=== PATIENT | male | born 1985 | race Caucasian/White ===

== ENCOUNTER 2020-04-14 13:46 | Emergency (ER) | payer SELFPAY ==
[2020-04-14] MEDS ORDERED: KETOROLAC TROMETHAMINE INJ/PF 30 MG/1 ML SDV IV ONE (14:45)
--- NOTE | 2020-04-14 14:48 | ER Document Report ---
ED Medical Screen (RME) - General Chief Complaint: Abdominal Pain Stated Complaint: LEFT UPPER ABDOMINAL PAIN Time Seen by Provider: 04/14/20 14:42 Information source: Patient - HPI Patient complains to provider of: ABDO PAIN Notes: 04/14/20 14:47 Patient with complaints of left lower quadrant abdominal pain. He states that the pain started suddenly about 3 hours ago after he was having a bowel movement. The pain has been severe and constant. No history of kidney stones. No vomiting, no fever. Patient reports he had a normal bowel movement. Exam: Patient crying, appears very uncomfortable, somewhat difficult to examine due to his distress. Abdominal tenderness to the left lower quadrant on limited triage abdominal exam. An initial examination was made on the patient as part of the triage process, and it was determined a more comprehensive evaluation was necessary. Initial labs were ordered and patient was transferred to another provider in the ED who assumed care and finished evaluation and plan. - Related Data Allergies/Adverse Reactions: No Known Allergies Allergy (Unverified 04/14/20 14:46) Past Medical History - Social History Chew tobacco use (# tins/day): No Frequency of alcohol use: None Drug Abuse: Marijuana
[2020-04-14] MEDS ORDERED: KETOROLAC TROMETHAMINE 60 MG/2 ML SDV IM ONE (15:09)
--- NOTE | 2020-04-14 15:28 | RADIOLOGY REPORT (SQ) ---
EXAM DESCRIPTION: CT ABD/PELVIS NO ORAL OR IV IMAGES COMPLETED DATE/TIME: 04/14/2020 3:18 pm REASON FOR STUDY: Severe left lower quadrant pain after BM COMPARISON: None. TECHNIQUE: CT scan of the abdomen and pelvis performed without intravenous or oral contrast. Images reviewed with lung, soft tissue, and bone windows. Reconstructed coronal and sagittal MPR images revi ewed. All images stored on PACS. All CT scanners at this facility use dose modulation, iterative reconstruction, and/or weight based d osing when appropriate to reduce radiation dose to as low as reasonably achievable (ALARA). [facility]: Dose Right [facility]: CareDose [facility]: Dose Right [facility]: Teradose 4D [facility]: Amp'd Mobile RADIATION DOSE: mGy. LIMITATIONS: None. FINDINGS: LOWER CHEST: No significant findings. No nodules or infiltrates. NON-CONTRASTED LIVER, SPLEEN, ADRENALS: Evaluation limited by lack of IV contrast. No identified sign ificant masses. PANCREAS: No masses. No peripancreatic inflammatory changes. GALLBLADDER: No identified stones by CT criteria. No inflammatory changes to suggest cholecystitis. RIGHT KIDNEY AND URETER: No suspicious masses. Assessment limited by lack of IV contrast. Small pun ctate nonobstructing right renal calculi. No hydronephrosis or hydroureter. LEFT KIDNEY AND URETER: No suspicious masses. Assessment limited by lack of IV contrast. Small nono bstructing left renal calculi. Mild prominence of the left renal pelvis no ureteral dilatation. AORTA AND RETROPERITONEUM: No aneurysm. No retroperitoneal masses or adenopathy. BOWEL AND PERITONEAL CAVITY: No obvious masses or inflammatory changes. No free fluid. APPENDIX: Normal. PELVIS, BLADDER, AND ABDOMINAL WALL:There is a calcification in close proximity to the left UVJ but t his clearly lies outside of the bladder. BONES: No significant findings. OTHER: No other significant finding. IMPRESSION: Mild prominence of left collecting system no obstructing stones are identified. There a re small punctate nonobstructing bilateral renal calculi. No other significant findings in the abdom en or pelvis. COMMENT: Quality ID # [id number]: Final reports with documentation of one or more dose reduction techniques (e.g., Automated exposure control, adjustment of the mA and/or kV according to patient size, use of iterative reconstruction technique) TECHNICAL DOCUMENTATION: JOB ID: [id number] [employer]- All Rights Reserved Reading location - IP/workstation name: [email or web address]
[2020-04-14 15:53] LABS: APPEARANCE,URINE SLIGHTLY-CLOUDY; BILIRUBIN,URINE NEGATIVE (NEGATIVE); COLOR,URINE YELLOW; GLUCOSE, URINE NEGATIVE (NEGATIVE); KETONES,URINE 20 mg/dL (NEGATIVE); LEUKOCYTE ESTERASE,URINE NEGATIVE (NEGATIVE); NITRITE,URINE NEGATIVE (NEGATIVE); PROTEIN,URINE 30 mg/dL (NEGATIVE)
[2020-04-14 15:55] LABS: ABSOLUTE BASOPHILS # (AUTO) 0.1 10^3/uL (0.0-0.2); ABSOLUTE EOSINOPHILS # (AUTO) 0.1 10^3/uL (0.0-0.6); ABSOLUTE LYMPHOCYTES (AUTO) 1.6 10^3/uL (0.5-4.7); ABSOLUTE MONOCYTES (AUTO) 1.3 10^3/uL (0.1-1.4); BASOPHILS % (AUTO) 0.4 % (0-2); EOSINOPHILS % (AUTO) 0.7 % (0-6); HEMATOCRIT 41.4 % (37.9-51.0); HEMOGLOBIN 14.7 g/dL (13.5-17.0); LYMPHOCYTES % (AUTO) 11.1 % (13-45); MEAN CORPUSCULAR HEMOGLOBIN 31.5 pg (27.0-33.4); MEAN CORPUSCULAR HGB CONC 35.4 g/dL (32.0-36.0); MEAN CORPUSCULAR VOLUME 89 fl (80-97); MONOCYTES % (AUTO) 9.1 % (3-13); PLATELET COUNT 357 10^3/uL (150-450); RED BLOOD COUNT 4.66 10^6/uL (4.35-5.55); RED CELL DISTRIBUTION WIDTH 13.4 % (11.5-14.0); SEGMENTED NEUTROPHILS % (AUTO) 78.7 % (42-78); TOTAL CELLS COUNTED % (AUTO) 100 %
[2020-04-14 16:20] LABS: ALKALINE PHOSPHATASE 65 U/L (38-126); ANION GAP 11 (5-19); ASPARTATE AMINO TRANSFERASE 30 U/L (17-59); BILIRUBIN,DIRECT 0.3 mg/dL (0.0-0.4); BILIRUBIN,TOTAL 0.6 mg/dL (0.2-1.3); BLOOD UREA NITROGEN 18 mg/dL (7-20); CALCIUM 10.1 mg/dL (8.4-10.2); CARBON DIOXIDE 26 mmol/L (22-30); CHLORIDE 101 mmol/L (98-107); GLUCOSE 118 mg/dL (75-110); TOTAL PROTEIN 8.3 g/dL (6.3-8.2)
[2020-04-14 16:50] LABS: ALBUMIN 4.9 g/dL (3.5-5.0)
[2020-04-14] MEDS ORDERED: ONDANSETRON 4 MG TAB.RAPDIS PO ONE (19:30)
[2020-04-14] MEDS ORDERED: OXYCODONE-ACETAMINOPHEN 5-325 MG TABLET PO ONE (19:30)
[2020-04-14] MEDS ORDERED: TAMSULOSIN HCL 0.4 MG CAP.SR.24H PO ONE (19:31)
[2020-04-14] MEDS ORDERED: HYDROCODONE/ACETAMINOPHEN 5-325 MG (6 TAB/ER DISP) PO PRN (19:37)
--- NOTE | 2020-04-14 19:39 | ER Document Report ---
ED General - General Chief Complaint: Abdominal Pain Stated Complaint: LEFT UPPER ABDOMINAL PAIN Time Seen by Provider: 04/14/20 14:42 - HPI Notes: 34-year-old male presents to the emergency department for evaluation of left-sided abdominal pain. He had a bowel movement today while at work. Shortly afterwards he had a sharp and stabbing left upper quadrant pain. It radiates around to his back. He has had some associated chills but no ajay fevers. No nausea or vomiting. He denies any gross hematuria or urinary frequency. He is never had pain like this in the past. His bowel movement was normal. He denies any coughing or shortness of breath. He did have some temporary relief with the Toradol here but he states that the pain is coming back. It is constant in nature but waxes and wanes in intensity. - Related Data Allergies/Adverse Reactions: No Known Allergies Allergy (Unverified 04/14/20 14:46) Past Medical History - General Information source: Patient - Social History Smoking Status: Current Every Day Smoker Chew tobacco use (# tins/day): No Frequency of alcohol use: None Drug Abuse: Marijuana Family History: Reviewed & Not Pertinent - Past Medical History Cardiac Medical History: Denies: Hx Coronary Artery Disease, Hx Hypertension Pulmonary Medical History: Denies: Hx Asthma, Hx COPD Neurological Medical History: Denies: Hx Cerebrovascular Accident, Hx Seizures Endocrine Medical History: Denies: Hx Diabetes Mellitus Type 1, Hx Diabetes Mellitus Type 2 Review of Systems - Review of Systems Constitutional: See HPI EENT: No symptoms reported Cardiovascular: No symptoms reported Respiratory: No symptoms reported Gastrointestinal: See HPI Genitourinary: See HPI Musculoskeletal: No symptoms reported Skin: No symptoms reported Neurological/Psychological: No symptoms reported Physical Exam - Notes Notes: There is a 34-year-old male who appears his stated age, no acute distress. Vital signs reviewed, please refer to chart. Head is normocephalic, atraumatic. Pupils equal round, reactive to light. Neck is supple without meningismus. Heart is regular rate and rhythm. Lungs are clear to auscultation bilaterally. Abdomen is soft, mildly tender in the left upper and left lower quadrants without rebound or guarding, normoactive bowel sounds throughout. Positive CVA tenderness on the left. Extremities without cyanosis, clubbing. Posterior calves are nontender. Peripheral pulses are equal. Skin is warm and dry. Patient is awake, alert, neurological exam is nonfocal. Course - Re-evaluation Re-evalutation: 04/14/20 19:36 Patient presents emergency department for evaluation. He complains of left upper quadrant and left flank pain. His exam is consistent with some mild hydronephrosis and likely kidney stone. His CT reveals punctate stones with some prominence of the collecting system on the left. I suspect he has an early traveling stone. He is feeling improved after the Toradol. He is given Flomax, Percocet, Zofran here. I will send him home with pain medication, nausea medication, Flomax and referral on to primary care. He is to return to the emergency department with worsening concerning symptoms of any sort. - Laboratory Results Result Diagrams: 04/14/20 15:25 04/14/20 15:25 Laboratory Results Interpreted: 04/14/20 04/14/20 04/14/20 15:20 15:25 15:25 WBC 14.0 H Lymph % (Auto) 11.1 L Absolute Neuts (auto) 11.0 H Seg Neutrophils % 78.7 H Glucose 118 H Total Protein 8.3 H Urine Protein 30 H Urine Ketones 20 H Urine Blood SMALL H Urine Urobilinogen 2.0 H Critical Laboratory Results Reviewed: No Critical Results - Radiology Results Radiology Results Interpreted: 04/14/20 19:36 Abdomen/Pelvis CT 04/14/20 14:46 IMPRESSION: Mild prominence of left collecting system no obstructing stones are identified. There are small punctate nonobstructing bilateral renal calculi. No other significant findings in the abdomen or pelvis. Critical Radiology Results Reviewed: No Critical Results Discharge - Discharge Clinical Impression: Renal colic on left side, Kidney stones Condition: Stable Disposition: HOME, SELF-CARE Instructions: Toradol Injection ([facility]), Kidney Stone ([facility]) Additional Instructions: Your findings today are most consistent with kidney stones. Please take the Flomax as directed daily. Watch for dizziness with this medicine. Take Ace a s needed for severe pain, watch for dizziness, drowsiness, constipation with this medication. Zofran as needed for nausea. Follow-up with primary care in 1 to 2 weeks. Return to the emergency department with worsening or new concerning symptoms of any sort.
[2020-04-14 19:41] VITALS: BP 125/71
== END 2020-04-14 20:52 | disposition home or self-care (01) ==
LOC: ER 13:46
DX: N20.0 Calculus of kidney (principal); R10.12 Left upper quadrant pain; R10.812 Left upper quadrant abdominal tenderness; R10.814 Left lower quadrant abdominal tenderness; R10.9 Unspecified abdominal pain; R68.83 Chills (without fever); F17.200 Nicotine dependence, unspecified, uncomplicated; F12.10 Cannabis abuse, uncomplicated
CPT/HCPCS: 99285; 96372; 36415; 83690; 85025; 80053; 81001; 74176; J1885; S0119